=== PATIENT | male | born 1965 | race Caucasian/White ===

== ENCOUNTER 2021-03-16 10:18 | Observation (INO) ==
[2021-03-16 11:47] LABS: Basophils # (auto) 0.05 K/uL (0-0.2); Basophils % (auto) 0.3 %; Eosinophils # (auto) 0.07 K/uL (0-0.5); Eosinophils % (auto) 0.5 %; Hematocrit (blood only) 45.3 % (42-52); Hemoglobin 15.5 g/dL (14.0-18.0); Immature Granulocytes # (auto) 0.06 K/uL (0.00-0.02); Immature Granulocytes % (auto) 0.4 %; Lymphocytes # (auto) 1.66 K/uL (1.2-3.4); Lymphocytes % (auto) 10.8 %; Mean Corpuscular Hemoglobin 29.2 pg (25-34); Mean Corpuscular Hgb Conc 34.2 g/dL (32-36); Mean Corpuscular Volume 85.5 fL (80-100); Mean Platelet Volume 11.5 fL (7.4-10.4); Monocytes # (auto) 0.77 K/uL (0.11-0.59); Neutrophils # (auto) 12.73 K/uL (1.4-6.5); Platelet Count 176 K/uL (130-400); RDW Coefficient of Variation 13.5 % (11.5-14.5); RDW Standard Deviation 42.8 fL (36.4-46.3); White Blood Count 15.34 K/uL (4.8-10.8)
[2021-03-16 12:06] LABS: Albumin Level 3.6 gm/dl (3.4-5.0); BUN Creatinine Ratio 10.9 (10-20); Calcium 9.2 mg/dl (8.5-10.1); Creatinine Clr Calc Pharmacy 83.4 ml/min; Est GFR (African American) 91.9 ml/min; Est GFR (Non-African American) 79.3 ml/min
[2021-03-16 12:09] LABS: Albumin Globulin Ratio 0.9 (0.9-2); Bilirubin,Total 0.7 mg/dl (0.2-1); Globulin 3.9 gm/dl (2.5-4.0); Total Protein 7.5 gm/dl (6.4-8.2)
[2021-03-16] MEDS ORDERED: SODIUM CHLORIDE 0.9% 1000ML 1,000 ML IV ONE (12:48)
[2021-03-16] MEDS ORDERED: MoRPHine SULFATE 10 MG/ML CARP/VIAL IV STA (12:48)
[2021-03-16] MEDS ORDERED: ONDANSETRON INJ 2 MG/ML 2 ML VIAL IV STA (12:48)
--- NOTE | 2021-03-16 13:04 | Emergency Department Note ---
Impression & Plan Acute appendicitis ED Provider Note Name: MONICA CENTENO Age: 55 Sex: M Arrives Via: Walk-In Informant: Patient ED Provider: Gerald Hi MD Chief Complaint: Abdominal pain Impression: As Per Impressions Above Medical Decision Making: Pleasant 55 yr old male with history anxiety/depression, hyperlipidemia, arrives for evaluation abdominal pain, initially diffuse now in RLQ. Labs with elevated WBC, no fevers, and patient quite uncomfortable on exam. Given IV opioid for pain control and CT obtained. CT reveals acute appendicitis without perforation. Mefoxin started and gen surg consulted for further management. Pre-op EKG and CXR ordered along with covid testing. Patient given IV fluids and kept NPO. Prior Medical Record and Triage/Nursing Notes reviewed by Me Additional history obtained from chart Differentials:Appendicitis, infections, diverticulitis, UTI, obstruction, mesenteric ischemia, aortic pathology, inflammatory bowel disease, renal colic, PUD, pancreatitis, biliary pathology, hernia, volvulus, constipation, as well as other pathologies. Vital Signs: reviewed and remarkable for no significant abnormalities Interventions: saline lock, morphine iv, zofran iv, nss bolus, mefoxitin 2gm iv Labs:Reviewed and remarkable for elevated wbc Imaging:See Below EKG:Per My Interpretation: Indication Pre Op: NSR 60 bpm, qtc 430. No Ectopy. No Ischemia. Compared to EKG 01/31/14, no significant changes. Consults:Dr Sukh Gary Gen Surg consulted and patient taken to or Plan: Disposition: Taken to OR Condition: Good History of Present Illness:55 yr old male arrives for evaluation of abdominal pain. Patient with 24 hours abdominal pain. Initially diffuse and upper abdomen, however overnight pain is now in RLQ. Associated nausea. No fevers, chills, chest pain, syncope, back pain, sob, urinary/bowel symptoms, leg swelling, rashes nor other symptoms. No recent trauma, injuries, bleeding nor bruising. No history abdominal issues and no previous surgeries. No medications taken for this. Movement makes worse, rest makes better. ROS: See above HPI for pertinent positives & negatives. A total of 10 systems reviewed and were otherwise negative. Past Medical History:See Below Past Surgical History:See Below Family History:See Below Social History:See Below Home Medications:See Below Allergies:nkda Vitals:Blood Pressure: 173/8, Pulse 60, RR 16, T 3.4C, O2 100% on RA Physical Exam: GENERAL: Patient is uncomfortable appearing and in moderate distress. EYES: No scleral icterus, unremarkable pupils. ENT: Mucous membranes moist, no nasal congestion. NECK: No masses appreciated, nomeningismus, trachea is midline. RESPIRATORY: No dyspnea. Clear to auscultation and equal bilaterally. No wheeze, no rhonchi. CARDIOVASCULAR: Regular rate and rhythm.No murmurs, rubs, gallops appreciated. GASTROINTESTINAL: Abdomen soft, TTP over RLQ.Bowel sounds positive.No masses appreciated. BACK: No midline tenderness, no CVA tenderness EXTREMITIES: Normal motion all extremities, no cyanosis, no edema. NEUROLOGIC: Alert and oriented, no acute motor or sensory deficits, no focal weakness, cranial nerves grossly intact. SKIN: No rash, no jaundice, no diaphoresis. PSYCH: Appropriate GCS: 15 ED Course: Times/Reassessments: stable, feeling much better with morphine. Understands CT findings and need for gen surg evaluation. Gerald Hi MD Past Med/Surg History Social History Smoking Status: Never smoker Second Hand Exposure: No; Do You Dip or Chew Tobacco: No; Tobacco Cessation Education Requested by Patient: No Hx Alcohol Use: No Hx Substance Use: No Preferred Language: Kitt[place] Metal Stamping Machine Operator Required: Yes Beliefs That Will Affect Care: None Current Living Situation: Spouse Other Information That Helps Us Care for You: No Feels Safe at Home: Yes Safety Concerns: Feels Safe At This Time Assistive Devices: Glasses Allergies Allergies Allergy/AdvReac Type Severity Reaction Status Date / Time No Known Allergies Allergy Unverified 03/16/21 14:03 Home Meds Home Medications Medication Instructions Recorded Confirmed bupropion HCl 300 mg 24 hr tablet, 300 mg PO DAILY 03/16/21 03/16/21 extended release buspirone 15 mg tablet 15 mg PO TID 03/16/21 03/16/21 clonazepam 0.5 mg tablet 0.5 mg PO UD PRN 03/16/21 03/16/21 sertraline 100 mg tablet 200 mg PO DAILY 03/16/21 03/16/21 Previous Rx's Medication Instructions Recorded oxycodone-acetaminophen 5 mg-325 1 tab PO Q6H PRN #5 tab 03/17/21 mg tablet Results & Data (ED) Vital Signs Vital Signs - 24 hr 03/16/21 11:09 03/16/21 12:39 03/16/21 14:28 Temperature 36.4 C L Temperature Source Temporal Artery Scan Pulse Rate 63 Pulse Rate [Apical] Pulse Rate [Finger] 60 64 Pulse Rhythm [Apical] Pulse Rhythm [Finger] Pulse Strength [Finger] Respiratory Rate 20 16 16 Respiratory Effort / Characteristics Non-Labored Spontaneous Non-Labored Spontaneous Non-Labored Respiratory Depth Normal Normal Normal Respiratory Pattern Regular Regular Blood Pressure 170/93 H Blood Pressure [Right Arm] 173/89 H 163/99 H Blood Pressure Mean 118 Blood Pressure Mean [Right Arm] 117 120 Blood Pressure Position Sitting Blood Pressure Position [Right Arm] Lying Pulse Oximetry 98 100 91 Oxygen Delivery Method Room Air Room Air Room Air Oxygen Flow Rate Sepsis Recent Fever Within 48 Hours No Sepsis New/Unexplained Change in Mental Status No Sepsis Action Taken by Nursing No Action Required 03/16/21 16:00 03/16/21 16:22 03/16/21 17:54 Temperature 36.8 C 36.8 C Temperature Source Oral Temporal Artery Scan Pulse Rate Pulse Rate [Apical] 70 Pulse Rate [Finger] 85 72 Pulse Rhythm [Apical] Regular Pulse Rhythm [Finger] Regular Pulse Strength [Finger] Normal Respiratory Rate 18 18 16 Respiratory Effort / Characteristics Non-Labored Spontaneous Non-Labored Spontaneous Non-Labored Spontaneous Respiratory Depth Normal Normal Normal Respiratory Pattern Regular Regular Regular Blood Pressure Blood Pressure [Right Arm] 143/87 H 137/77 145/85 H Blood Pressure Mean Blood Pressure Mean [Right Arm] 105 97 105 Blood Pressure Position Blood Pressure Position [Right Arm] Lying Semi-fowlers Pulse Oximetry 97 93 100 Oxygen Delivery Method Room Air Room Air Oxymask Oxygen Flow Rate 6 Sepsis Recent Fever Within 48 Hours Sepsis New/Unexplained Change in Mental Status Sepsis Action Taken by Nursing Laboratory Data Result diagrams: 03/16/21 11:30 03/16/21 11:30 Lab Results 03/16/21 03/16/21 03/16/21 Range/Units 11:30 11:30 13:50 WBC 15.34 H (4.8-10.8) K/uL RBC 5.30 (4.7-6.1) M/uL Hgb 15.5 (14.0-18.0) g/dL Hct 45.3 (42-52) % MCV 85.5 (80-100) fL MCH 29.2 (25-34) pg MCHC 34.2 (32-36) g/dL RDW Std Deviation 42.8 (36.4-46.3) fL RDW Coeff of Rosangela 13.5 (11.5-14.5) % Plt Count 176 (130-400) K/uL MPV 11.5 H (7.4-10.4) fL Immature Gran % (Auto) 0.4 % Neut % (Auto) 83.0 % Lymph % (Auto) 10.8 % Benton % (Auto) 5.0 % Eos % (Auto) 0.5 % Baso % (Auto) 0.3 % Neut # (Auto) 12.73 H (1.4-6.5) K/uL Lymph # (Auto) 1.66 (1.2-3.4) K/uL Benton # (Auto) 0.77 H (0.11-0.59) K/uL Eos # (Auto) 0.07 (0-0.5) K/uL Baso # (Auto) 0.05 (0-0.2) K/uL Immature Gran # (Auto) 0.06 H (0.00-0.02) K/uL Sodium 135 L (136-145) mmol/L Potassium 4.0 (3.5-5.1) mmol/L Chloride 102 (98-107) mmol/L Carbon Dioxide 27 (21-32) mmol/L Anion Gap 6.0 (3-11) BUN 11 (7-18) mg/dl Creatinine 1.04 (0.6-1.4) mg/dl Est Cr Clr Drug Dosing 83.4 ml/min Est GFR ( Amer) 91.9 ml/min Est GFR (Non-Af Amer) 79.3 ml/min BUN/Creatinine Ratio 10.9 (10-20) Glucose 110 H (70-99) mg/dl Calcium 9.2 (8.5-10.1) mg/dl Total Bilirubin 0.7 (0.2-1) mg/dl AST 20 (15-37) U/L ALT 31 (12-78) U/L Alkaline Phosphatase 90 (45-117) U/L Total Protein 7.5 (6.4-8.2) gm/dl Albumin 3.6 (3.4-5.0) gm/dl Globulin 3.9 (2.5-4.0) gm/dl Albumin/Globulin Ratio 0.9 (0.9-2) Lipase 104 (73-393) U/L COVID-19 Eval Order Covid19 at [facility] SARS-CoV-2 (PCR) (Negative) 03/16/21 Range/Units 13:50 WBC (4.8-10.8) K/uL RBC (4.7-6.1) M/uL Hgb (14.0-18.0) g/dL Hct (42-52) % MCV (80-100) fL MCH (25-34) pg MCHC (32-36) g/dL RDW Std Deviation (36.4-46.3) fL RDW Coeff of Rosangela (11.5-14.5) % Plt Count (130-400) K/uL MPV (7.4-10.4) fL Immature Gran % (Auto) % Neut % (Auto) % Lymph % (Auto) % Benton % (Auto) % Eos % (Auto) % Baso % (Auto) % Neut # (Auto) (1.4-6.5) K/uL Lymph # (Auto) (1.2-3.4) K/uL Benton # (Auto) (0.11-0.59) K/uL Eos # (Auto) (0-0.5) K/uL Baso # (Auto) (0-0.2) K/uL Immature Gran # (Auto) (0.00-0.02) K/uL Sodium (136-145) mmol/L Potassium (3.5-5.1) mmol/L Chloride (98-107) mmol/L Carbon Dioxide (21-32) mmol/L Anion Gap (3-11) BUN (7-18) mg/dl Creatinine (0.6-1.4) mg/dl Est Cr Clr Drug Dosing ml/min Est GFR ( Amer) ml/min Est GFR (Non-Af Amer) ml/min BUN/Creatinine Ratio (10-20) Glucose (70-99) mg/dl Calcium (8.5-10.1) mg/dl Total Bilirubin (0.2-1) mg/dl AST (15-37) U/L ALT (12-78) U/L Alkaline Phosphatase (45-117) U/L Total Protein (6.4-8.2) gm/dl Albumin (3.4-5.0) gm/dl Globulin (2.5-4.0) gm/dl Albumin/Globulin Ratio (0.9-2) Lipase (73-393) U/L COVID-19 Eval Order SARS-CoV-2 (PCR) NEGATIVE (Negative) Administered Medications Bupropion HCl (Bupropion Xl 300 Mg Tabcr) 300 mg PO DAILY LESLYE Stop: 04/16/21 08:59 Last Admin: 03/17/21 07:47 Dose: 300 mg Documented by: [id number] Buspirone HCl (Buspirone 15 Mg Tab) 15 mg PO TID LESLYE Stop: 04/15/21 20:59 Last Admin: 03/17/21 07:47 Dose: 15 mg Documented by: [id number] Admin: 03/16/21 21:46 Dose: 15 mg Documented by: [id number] Enoxaparin Sodium (Enoxaparin Inj 40 Mg/0.4 Ml Syr) 40 mg SQ Q24H LESLYE Stop: 04/16/21 07:59 Last Admin: 03/17/21 07:46 Dose: 40 mg Documented by: [id number] Sertraline HCl (Sertraline Hcl 100 Mg Tablet) 200 mg PO DAILY LESLYE Stop: 04/16/21 08:59 Last Admin: 03/17/21 07:47 Dose: 200 mg Documented by: [id number] Discontinued Medications Bupivacaine HCl (Bupivacaine 0.5 % 5 Mg/1 Ml Mpf 30ml Vial) Confirm Administered Dose 30 ml .ROUTE .STK-MED ONE Stop: 03/16/21 16:20 Last Admin: 03/16/21 17:43 Dose: 25 ml Documented by: [id number] Epinephrine HCl (Epinephrine Inj 1 Mg/Ml Amp) Confirm Administered Dose 1 mg .ROUTE .STK-MED ONE Stop: 03/16/21 16:51 Last Admin: 03/16/21 17:45 Dose: 0.15 mg Documented by: [id number] Sodium Chloride (Nss 1000ml) 1,000 mls @ 999 mls/hr IV .Q1H1M ONE Stop: 03/16/21 13:48 Last Infusion: 03/16/21 14:15 Dose: 0 mls/hr Documented by: [id number] Admin: 03/16/21 13:19 Dose: 999 mls/hr Documented by: [id number] Cefoxitin Sodium (Mefoxin) 2,000 mg in 60 mls @ 100 mls/hr IV NOW STA Stop: 03/16/21 13:57 Last Infusion: 03/16/21 15:29 Dose: 0 mls/hr Documented by: [id number] Infusion: 03/16/21 14:08 Dose: 0 mls/hr Documented by: [id number] Admin: 03/16/21 13:50 Dose: 100 mls/hr Documented by: [id number] Sodium Chloride (Nss 1000ml) 1,000 mls @ 125 mls/hr IV .Q8H LESLYE Stop: 04/15/21 14:59 Last Infusion: 03/16/21 19:39 Dose: 0 mls/hr Documented by: [id number] Admin: 03/16/21 15:30 Dose: 125 mls/hr Documented by: [id number] Ioversol (Optiray 320 100ml) 96 ml IV ONCE ONE Stop: 03/16/21 13:09 Last Admin: 03/16/21 13:09 Dose: 96 ml Documented by: [id number] Morphine Sulfate (Morphine Sulfate 10 Mg/Ml Carp/Vial) 8 mg IV NOW STA Stop: 03/16/21 12:49 Last Admin: 03/16/21 13:20 Dose: 8 mg Documented by: [id number] Morphine Sulfate (Morphine Sulfate 4 Mg/Ml 1 Ml Carp\Vial) 4 mg IV NOW STA Stop: 03/16/21 15:37 Last Admin: 03/16/21 15:42 Dose: 4 mg Documented by: [id number] Ondansetron HCl (Ondansetron Inj 2 Mg/Ml 2 Ml Vial) 4 mg IV NOW STA Stop: 03/16/21 12:49 Last Admin: 03/16/21 13:20 Dose: 4 mg Documented by: [id number] Imaging Data Radiologist's Impression: Abdomen/Pelvis CT 03/16/21 12:[address] WITH IV CONTRAST CT DOSE: 621.85 mGy.cm HISTORY: Right lower quadrant pain. Elevated white blood cell count. TECHNIQUE: Multiaxial CT images of the abdomen and pelvis were performed following the use of intravenous contrast. A dose lowering technique was utilized adhering to the principles of ALARA. COMPARISON STUDY: Abdomen and pelvis CT 01/31/2014. FINDINGS: Mild dependent changes seen within the lower lobes. Stable benign 6 mm subpleural nodule along the right minor fissure. No pneumoperitoneum. No pneumatosis. 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 No acute fractures within the visualized osseous structures. Stable hypodense lesions within the liver. Dominant lesion within the caudate lobe measures 3.1 cm. This demonstrates discontinuous peripheral nodular enhancement and therefore favors a hemangioma. The spleen, adrenal glands, pancreas, gallbladder, and right kidney are unremarkable. Increase in size in the 2.4 cm hypodense lesion within the left kidney. This likely represents a cyst. No hydronephrosis. No retroperitoneal lymphadenopathy. Normal caliber abdominal aorta. The bladder is unremarkable. No pelvic free fluid. A few colonic diverticula. No evidence for acute diverticulitis. No evidence for small bowel obstruction. Thick-walled and distended appendix with periappendiceal fat stranding and a few appendicoliths measuring up to 6 mm. This is consistent with an acute appendicitis. The appendix measures up to 1 cm in diameter. No perforation or abscess identified at this time. IMPRESSION: 1. Acute appendicitis. No perforation or abscess at this time. 2. Additional stable findings as described above. ACT 112: Negative or not required by law. Electronically signed by: Michel Daley M.D. 03/16/2021 1:18 PM Discharge Plan Visit Data Chief Complaint: Abdominal Pain Stated Complaint: ABDOMINAL PAIN ED Provider: Gerald Hi Discharge Problem: Acute appendicitis Patient Disposition: Admitted As Inpatient Discharge Instructions Interventions: ED Discharge Assessment Last Done: 03/16/21 16:19 Discharge Problem: Acute appendicitis Qualifiers: Acute appendicitis type: with localized peritonitis Appendicitis gangrene presence: without gangrene Appendicitis perforation presence: without perforation Appendicitis abscess presence: without abscess Qualified Code(s): K35.30 - Acute appendicitis with localized peritonitis, without perforation or gangrene
[2021-03-16] MEDS ORDERED: OPTIRAY 320 100ml IV ONE (13:08)
--- NOTE | 2021-03-16 13:19 | CT Scan Report ---
ABDOMEN AND PELVIS CT WITH IV CONTRAST CT DOSE: 621.85 mGy.cm HISTORY: Right lower quadrant pain. Elevated white blood cell count. TECHNIQUE: Multiaxial CT images of the abdomen and pelvis were performed following the use of intrave nous contrast. A dose lowering technique was utilized adhering to the principles of ALARA. COMPARISON STUDY: Abdomen and pelvis CT 01/31/2014. FINDINGS: Mild dependent changes seen within the lower lobes. Stable benign 6 mm subpleural nodule al sushila the right minor fissure. No pneumoperitoneum. No pneumatosis. 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 No acute fractures within the visualized osseous structures. Stable hypodense lesions within the liver. Dominant lesion within the caudate lobe measures 3.1 cm. This demonstrates discontinuous p eripheral nodular enhancement and therefore favors a hemangioma. The spleen, adrenal glands, pancreas , gallbladder, and right kidney are unremarkable. Increase in size in the 2.4 cm hypodense lesion wit hin the left kidney. This likely represents a cyst. No hydronephrosis. No retroperitoneal lymphadenop athy. Normal caliber abdominal aorta. The bladder is unremarkable. No pelvic free fluid. A few coloni c diverticula. No evidence for acute diverticulitis. No evidence for small bowel obstruction. Thick-w alled and distended appendix with periappendiceal fat stranding and a few appendicoliths measuring up to 6 mm. This is consistent with an acute appendicitis. The appendix measures up to 1 cm in diameter . No perforation or abscess identified at this time. IMPRESSION: 1. Acute appendicitis. No perforation or abscess at this time. 2. Additional stable findings as described above. ACT 112: Negative or not required by law. Electronically signed by: Michel Daley M.D. 03/16/2021 1:18 PM
[2021-03-16] MEDS ORDERED: cefOXitin 2,000 MG/60 ML BAG IV STA (13:22)
[2021-03-16] MEDS ORDERED: SODIUM CHLORIDE 0.9% 1000ML 1,000 ML IV SCH (15:00)
[2021-03-16] MEDS ORDERED: MoRPHine SULFATE 4 MG/ML 1 ML CARP\\VIAL IV STA (15:36)
--- NOTE | 2021-03-16 15:53 | XRay Report ---
XR chest 1V portable HISTORY: 55 years-old Male preop preoperative exam. No acute chest complaints reported COMPARISON: CT abdomen and pelvis of same day, chest radiograph 01/31/2014, chest CT 08/19/2014 TECHNIQUE: Portable AP view of the chest FINDINGS: The cardiac silhouette is upper limits of normal in size. No pneumothorax, pleural effusion, airspace consolidation or overt pulmonary edema. No acute fracture. IMPRESSION: No acute process. ACT 112: Negative or not required by law. The above report was generated using voice recognition software. It may contain grammatical, syntax o r spelling errors. Electronically signed by: Chuck Mcghee M.D. 03/16/2021 3:51 PM
[2021-03-16] MEDS ORDERED: GLYCOPYRROLATE 0.2 MG/ML VIAL ONE ×2 (15:56→17:14)
[2021-03-16] MEDS ORDERED: fentaNYL citrate 100 MCG/2 ML VIAL ONE ×2 (15:56→15:57)
[2021-03-16] MEDS ORDERED: ONDANSETRON INJ 2 MG/ML 2 ML VIAL ONE ×2 (15:56→17:14)
[2021-03-16] MEDS ORDERED: NEOSTIGMINE METHYLSULFATE 1 MG/ML 10ML VIAL ONE (15:56)
[2021-03-16] MEDS ORDERED: DEXAMETHASONE SOD INJ 4 MG/ML VIAL ONE (15:56)
[2021-03-16] MEDS ORDERED: MIDAZOLAM HCL 1 MG/ML 2ML VIAL ONE (15:56)
[2021-03-16] MEDS ORDERED: PROPOFOL IV EMULSION 10 MG/ML 20 ML VIAL IV ONE (15:56)
[2021-03-16] MEDS ORDERED: LIDOCAINE 2% 2 ML VIAL/AMP(20MG/ML) INFIL ONE (15:56)
--- NOTE | 2021-03-16 15:57 | History & Physical Report ---
Date of Service March 16, 2021 Assessment & Plan (1) Acute appendicitis: Plan: 55-year-old gentleman with acute appendicitis. I discussed the risks and benefits of a laparoscopic appendectomy, possible open with him. We discussed the surgery as well as the recovery period and restrictions following surgery. All his questions were answered, and he is agreeable to proceed. We will taken to the operating room at the earliest convenience. History of Present Illness Primary Care Provider: Augusto Gunderson MD 55-year-old gentleman presents with 1 day history of epigastric pain radiating down to the right lower quadrant. It worsened all day yesterday into today. He denies nausea or vomiting. He has no appetite. His last food was a piece of toast this morning. He denies changes in bowel habits. He did have fevers and chills. CT scan demonstrates acute appendicitis without evidence of perforation. He denies chest pain or shortness of breath. He has never had an abdominal operation before. Allergies Allergy/AdvReac Type Severity Reaction Status Date / Time No Known Allergies Allergy Unverified 03/16/21 14:03 Home Medications Medication Instructions Recorded Confirmed Type bupropion HCl 300 mg 24 hr tablet, 300 mg PO DAILY 03/16/21 03/16/21 History extended release buspirone 15 mg tablet 15 mg PO TID 03/16/21 03/16/21 History clonazepam 0.5 mg tablet 0.5 mg PO UD PRN 03/16/21 03/16/21 History sertraline 100 mg tablet 200 mg PO DAILY 03/16/21 03/16/21 History Past Med/Surg History Social History Smoking Status: Never smoker Feels Safe at Home: Yes Review of Systems Review of Systems: All systems reviewed & are unremarkable except as noted in HPI & below Physical Exam Constitutional: WD/WN, vitals as above Eyes: PERRL, conjunctivae normal, anicteric sclerae Neck: trachea midline, no thyromegaly Respiratory: normal respiratory effort; no respiratory distress and no labored breathing Cardiovascular: Rate/Rhythm: regular rate and regular rhythm Gastrointestinal (Abdomen): Inspection/Auscultation: abdomen normal to inspection; abdomen not distended and no abdominal surgical scar Percussion/Palpation: + abdomen tender (Right lower quadrant) and abdomen soft; no guarding and abdomen not rigid Musculoskeletal: Extremities: no cyanosis and no clubbing Skin: no rashes, warm and dry Psychiatric: A+Ox3, euthymic affect Results & Data Results & Data ([facility]) Vital Signs (Past 12 Hours) Vital Signs Temp Pulse Pulse Resp BP BP Pulse Ox 03/16/21 14:28 64 16 163/99 H 91 03/16/21 12:39 60 16 173/89 H 100 03/16/21 11:09 36.4 C L 63 20 170/93 H 98 Laboratory Results 03/16/21 03/16/21 03/16/21 Range/Units 13:50 13:50 11:30 WBC (4.8-10.8) K/uL RBC (4.7-6.1) M/uL Hgb (14.0-18.0) g/dL Hct (42-52) % MCV (80-100) fL MCH (25-34) pg MCHC (32-36) g/dL RDW Std Deviation (36.4-46.3) fL RDW Coeff of Rosangela (11.5-14.5) % Plt Count (130-400) K/uL MPV (7.4-10.4) fL Immature Gran % (Auto) % Neut % (Auto) % Lymph % (Auto) % Divide % (Auto) % Eos % (Auto) % Baso % (Auto) % Neut # (Auto) (1.4-6.5) K/uL Lymph # (Auto) (1.2-3.4) K/uL Divide # (Auto) (0.11-0.59) K/uL Eos # (Auto) (0-0.5) K/uL Baso # (Auto) (0-0.2) K/uL Immature Gran # (Auto) (0.00-0.02) K/uL Sodium 135 L (136-145) mmol/L Potassium 4.0 (3.5-5.1) mmol/L Chloride 102 (98-107) mmol/L Carbon Dioxide 27 (21-32) mmol/L Anion Gap 6.0 (3-11) BUN 11 (7-18) mg/dl Creatinine 1.04 (0.6-1.4) mg/dl Est Cr Clr Drug Dosing 83.4 ml/min Est GFR ( Amer) 91.9 ml/min Est GFR (Non-Af Amer) 79.3 ml/min BUN/Creatinine Ratio 10.9 (10-20) Glucose 110 H (70-99) mg/dl Calcium 9.2 (8.5-10.1) mg/dl Total Bilirubin 0.7 (0.2-1) mg/dl AST 20 (15-37) U/L ALT 31 (12-78) U/L Alkaline Phosphatase 90 (45-117) U/L Total Protein 7.5 (6.4-8.2) gm/dl Albumin 3.6 (3.4-5.0) gm/dl Globulin 3.9 (2.5-4.0) gm/dl Albumin/Globulin Ratio 0.9 (0.9-2) Lipase 104 (73-393) U/L COVID-19 Eval Order Covid19 at [facility] SARS-CoV-2 (PCR) NEGATIVE (Negative) 03/16/21 Range/Units 11:30 WBC 15.34 H (4.8-10.8) K/uL RBC 5.30 (4.7-6.1) M/uL Hgb 15.5 (14.0-18.0) g/dL Hct 45.3 (42-52) % MCV 85.5 (80-100) fL MCH 29.2 (25-34) pg MCHC 34.2 (32-36) g/dL RDW Std Deviation 42.8 (36.4-46.3) fL RDW Coeff of Rosangela 13.5 (11.5-14.5) % Plt Count 176 (130-400) K/uL MPV 11.5 H (7.4-10.4) fL Immature Gran % (Auto) 0.4 % Neut % (Auto) 83.0 % Lymph % (Auto) 10.8 % Divide % (Auto) 5.0 % Eos % (Auto) 0.5 % Baso % (Auto) 0.3 % Neut # (Auto) 12.73 H (1.4-6.5) K/uL Lymph # (Auto) 1.66 (1.2-3.4) K/uL Divide # (Auto) 0.77 H (0.11-0.59) K/uL Eos # (Auto) 0.07 (0-0.5) K/uL Baso # (Auto) 0.05 (0-0.2) K/uL Immature Gran # (Auto) 0.06 H (0.00-0.02) K/uL Sodium (136-145) mmol/L Potassium (3.5-5.1) mmol/L Chloride (98-107) mmol/L Carbon Dioxide (21-32) mmol/L Anion Gap (3-11) BUN (7-18) mg/dl Creatinine (0.6-1.4) mg/dl Est Cr Clr Drug Dosing ml/min Est GFR ( Amer) ml/min Est GFR (Non-Af Amer) ml/min BUN/Creatinine Ratio (10-20) Glucose (70-99) mg/dl Calcium (8.5-10.1) mg/dl Total Bilirubin (0.2-1) mg/dl AST (15-37) U/L ALT (12-78) U/L Alkaline Phosphatase (45-117) U/L Total Protein (6.4-8.2) gm/dl Albumin (3.4-5.0) gm/dl Globulin (2.5-4.0) gm/dl Albumin/Globulin Ratio (0.9-2) Lipase (73-393) U/L COVID-19 Eval Order SARS-CoV-2 (PCR) (Negative) Diagnostic Findings ABDOMEN AND PELVIS CT WITH IV CONTRAST CT DOSE: 621.85 mGy.cm HISTORY: Right lower quadrant pain. Elevated white blood cell count. TECHNIQUE: Multiaxial CT images of the abdomen and pelvis were performed following the use of intravenous contrast. A dose lowering technique was utilized adhering to the principles of ALARA. COMPARISON STUDY: Abdomen and pelvis CT 01/31/2014. FINDINGS: Mild dependent changes seen within the lower lobes. Stable benign 6 mm subpleural nodule along the right minor fissure. No pneumoperitoneum. No pneumatosis. 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 No acute fractures within the visualized osseous structures. Stable hypodense lesions within the liver. Dominant lesion within the caudate lobe measures 3.1 cm. This demonstrates discontinuous peripheral nodular enhancement and therefore favors a hemangioma. The spleen, adrenal glands, pancreas, gallbladder, and right kidney are unremarkable. Increase in size in the 2.4 cm hypodense lesion within the left kidney. This likely represents a cyst. No hydronephrosis. No retroperitoneal lymphadenopathy. Normal caliber abdominal aorta. The bladder is unremarkable. No pelvic free fluid. A few colonic diverticula. No evidence for acute diverticulitis. No evidence for small bowel obstruction. Thick-walled and distended appendix with periappendiceal fat stranding and a few appendicoliths measuring up to 6 mm. This is consistent with an acute appendicitis. The appendix measures up to 1 cm in diameter. No perforation or abscess identified at this time. IMPRESSION: 1. Acute appendicitis. No perforation or abscess at this time. 2. Additional stable findings as described above. (1) Acute appendicitis Acute appendicitis type: with localized peritonitis Appendicitis abscess presence: without abscess Appendicitis gangrene presence: without gangrene Appendicitis perforation presence: without perforation Qualified Code(s): K35.30 - Acute appendicitis with localized peritonitis, without perforation or gangrene
--- NOTE | 2021-03-16 16:09 | Anesthesiology Consultation ---
Date of Service March 16, 2021 Assessment & Plan (1) Encounter for pre-operative examination: Chart Review Chart Review: Acceptable Risk for Surgery and Patient NOT seen in Pre Admission Testing Consults Requested none History Surgery Operation Date: 03/16/21 17:40 Proposed Procedures p Laparoscopic Appendectomy - Crescencio Luz MD Height/Weight Height: 5 ft 6 in Weight: 92.3 kg Allergies Allergy/AdvReac Type Severity Reaction Status Date / Time No Known Allergies Allergy Unverified 03/16/21 14:03 Medications Home Medications Medication Instructions Recorded Confirmed Last Taken bupropion HCl 300 mg 24 hr tablet, 300 mg PO DAILY 03/16/21 03/16/21 Unknown extended release buspirone 15 mg tablet 15 mg PO TID 03/16/21 03/16/21 Unknown clonazepam 0.5 mg tablet 0.5 mg PO UD PRN 03/16/21 03/16/21 Unknown sertraline 100 mg tablet 200 mg PO DAILY 03/16/21 03/16/21 Unknown Active Medications Generic Name Dose Route Start Last Admin Trade Name Nicolásq PRN Reason Stop Dose Admin Sodium Chloride 1,000 mls @ 125 mls/hr 03/16/21 15:00 03/16/21 15:30 Nss 1000ml IV 04/15/21 14:59 125 mls/hr .Q8H LESLYE Administration Social History Smoking Status: Never smoker Physical Exam Vital Signs Last Vital Signs Temp 97.5 F L 03/16/21 11:09 Pulse 64 03/16/21 14:28 Resp 16 03/16/21 14:28 BP 163/99 H 03/16/21 14:28 Pulse Ox 91 03/16/21 14:28 Testing Laboratory Results 03/16/21 11:30 03/16/21 11:30 Electrocardiogram Date: 03/16/21 Findings: + NSR @
[2021-03-16] MEDS ORDERED: BUPIVACAINE 0.5 % 5 MG/1 ML MPF 30ML VIAL ONE (16:19)
--- NOTE | 2021-03-16 16:48 | Electrocardiogram Report ---
Test Reason : Blood Pressure : / mmHG Vent. Rate : 060 BPM Atrial Rate : 060 BPM P-R Int : 176 ms QRS Dur : 080 ms QT Int : 430 ms P-R-T Axes : 057 043 045 degrees QTc Int : 430 ms Normal sinus rhythm Normal ECG When compared with ECG of 31-JAN-2014 09:26, No significant change was found Confirmed by Reid Cook ([id number]) on 03/16/2021 4:48:02 PM Referred By: REFERRED SELF Confirmed By:Reid Cook
[2021-03-16] MEDS ORDERED: EPINEPHrine INJ 1 MG/ML AMP ONE (16:50)
[2021-03-16] MEDS ORDERED: LARYING-O-JET KIT (LTA) ONE (17:14)
[2021-03-16] MEDS ORDERED: SUCCINYLCHOLINE CHLORIDE 20 MG/ML 10 ML VIAL IV ONE (17:15)
[2021-03-16] MEDS ORDERED: ROCURONIUM BROMIDE 10 MG/ML 5 ML VIAL IV ONE (17:15)
[2021-03-16] MEDS ORDERED: ePHEDrine sulfate 50 MG/ML SYR ONE (17:19)
--- NOTE | 2021-03-16 17:51 | Post Operative Brief Note ---
Immediate Post Op Note v1 Date of Surgery March 16, 2021 Pre & Post Diagnosis Operation Date: 03/16/21 17:40 Pre-Op Diagnosis: Acute appendicitis Post-Op Diagnosis: Acute appendicitis I identified the patient and participated in the time-out.: Yes Procedure Operation Date: 03/16/21 17:40 Actual Procedures p Laparoscopic Appendectomy(Not Applicable) - Crescencio Luz MD Surgeon Crescencio Luz MD Syruper SAMUEL Deluca assisted with tissue retraction, camera op, closure Estimated Blood Loss 5 Findings Consistent with Post-Op Diagnosis
--- NOTE | 2021-03-16 17:53 | Operative Report ---
Post Operative Report Pre & Post Diagnosis Operation Date: 03/16/21 17:40 Pre-Op Diagnosis: Acute appendicitis Post-Op Diagnosis: Acute appendicitis I identified the patient and participated in the time-out.: Yes Procedure Operation Date: 03/16/21 17:40 Actual Procedures p Laparoscopic Appendectomy(Not Applicable) - Crescencio Luz MD Surgeon Crescencio Luz MD Drum Worker SAMUEL Deluca assisted with tissue retraction, camera op, closure Estimated Blood Loss 5 Findings Consistent with Post-Op Diagnosis Acute inflammation of the appendix, appendicitis, no perforation Specimens Appendix Anesthesia Type General Complications No immediate complications Indications Acute appendicitis Description of Procedure The patient was taken to the operating room, and placed supine on the operating table. A timeout was performed, perioperative antibiotics were administered, SCD boots were placed. After adequate anesthesia and analgesia was obtained, the abdomen was prepped and draped in the normal sterile fashion. A 1 cm incision was made in the supraumbilical region and carried down to the level of the fascia. A trach hook was used to grasp the fascia and elevated and a varies needle was used to enter the abdominal cavity. The abdomen was insufflated to a pressure of 15 mmHg, and a 5 mm trocar was placed in this location. A 5 mm 30 degree laparoscope was placed into the abdominal cavity, and the abdomen was surveyed. The patient was placed in Trendelenburg and slightly to the left. One 5 mm trocar was placed in the right upper quadrant, and one 12 mm trocar was placed in the left lower quadrant under direct visualization. The right colon was identified and traced down to the cecum. The appendix was retrocecal and had to be dissected free from the pelvic sidewall. The appendix was identified and elevated anteriorly and medially. A window was created at the base of the appendix with a [place] dissector. The Endo SCARLETT stapler was used to transect the appendix at its base through noninflamed tissue, and subsequently the mesoappendix. The appendix was placed in an Endo Catch bag, and removed via the left lower quadrant port site. Attention was turned to hemostasis, which was excellent. The abdomen was copiously irrigated and suctioned free, and again hemostasis was found to be excellent. All trochars removed under direct visualization. The abdomen was desufflated. The fascia in the 12 mm port site was closed with a 0 Vicryl suture. The skin was closed with a running 4-0 Monocryl subcuticular stitch. Dermabond was applied. The patient tolerated the procedure without complication, and was transferred in stable condition to the PACU. All instrument, needle, and sponge counts were correct at the end of the case. I attest to the content of the Intraoperative Record and any orders documented therein. Any exceptions are noted below.
--- NOTE | 2021-03-16 18:22 | Anesthesiology Progress Note ---
Date of Service March 16, 2021 Anesthesia Post Procedure Vital Signs Vital Signs: Temp Pulse Pulse Pulse Resp BP BP 03/16/21 18:20 97.7 F 72 15 142/86 H 03/16/21 18:10 72 15 141/83 H 03/16/21 18:00 69 17 153/86 H 03/16/21 17:54 98.2 F 70 16 145/85 H 03/16/21 16:22 98.2 F 72 18 137/77 03/16/21 16:00 85 18 143/87 H 03/16/21 14:28 64 16 163/99 H 03/16/21 12:39 60 16 173/89 H 03/16/21 11:09 97.5 F L 63 20 170/93 H Pulse Ox 03/16/21 18:20 94 03/16/21 18:10 100 03/16/21 18:00 100 03/16/21 17:54 100 03/16/21 16:22 93 03/16/21 16:00 97 03/16/21 14:28 91 03/16/21 12:39 100 03/16/21 11:09 98 Pain Intensity Abdomen: Pain Intensity: 3 Transfer of Care Handoff Completed per policy Notes Mental Status: alert / awake / arousable and participated in evaluation Patient Amnestic to Procedure: Yes Nausea / Vomiting: adequately controlled Pain: adequately controlled Airway Patency, RR, SpO2: stable & adequate BP & HR: stable & adequate Hydration State: stable & adequate Anesthetic Complications: no major complications apparent and Pt Satisfied with anesthetic care
[2021-03-16] MEDS ORDERED: KETOROLAC 30 MG/ML VIAL IV PRN (19:37)
[2021-03-16] MEDS ORDERED: MoRPHine SULFATE 2 MG/ML CARP IV PRN (19:37)
[2021-03-16] MEDS ORDERED: ONDANSETRON INJ 2 MG/ML 2 ML VIAL IV PRN (19:37)
[2021-03-16] MEDS ORDERED: oxyCODONE/ACETAMINOPHEN 5mg/325mg TAB PO PRN (19:37)
[2021-03-16] MEDS ORDERED: diphenhydrAMINE Capsule 25 MG CAP PO PRN (19:37)
[2021-03-16] MEDS ORDERED: PROMETHAZINE HCL 12.5 MG in SODIUM CHLORIDE 0.9% 50 ML IV PRN (19:37)
[2021-03-16] MEDS: busPIRone 15 MG TAB PO SCH (21:46)
[2021-03-17] MEDS: busPIRone 15 MG TAB PO SCH ×2 (07:47→14:13)
[2021-03-17] MEDS ORDERED: ENOXAPARIN INJ 40 MG/0.4 ML SYR SQ SCH (08:00)
[2021-03-17] MEDS ORDERED: SERTRALINE HCL 100 MG TABLET PO SCH (09:00)
[2021-03-17] MEDS ORDERED: buPROPion XL 300 MG TABCR PO SCH (09:00)
--- NOTE | 2021-03-17 09:49 | Discharge Summary ---
Date of Service March 17, 2021 Admission HPI Per Admitting Provider 55-year-old gentleman presents with 1 day history of epigastric pain radiating down to the right lower quadrant. It worsened all day yesterday into today. He denies nausea or vomiting. He has no appetite. His last food was a piece of toast this morning. He denies changes in bowel habits. He did have fevers and chills. CT scan demonstrates acute appendicitis without evidence of perforation. He denies chest pain or shortness of breath. He has never had an abdominal operation before. Principal Diagnosis Acute appendicitis Discharge Exam Constitutional WD/WN, vitals as above no acute distress and not ill appearing Respiratory normal respiratory effort; no respiratory distress, no labored breathing and no retractions Gastrointestinal (Abdomen) Inspection/Auscultation: + abdomen distended (mildly) and + abdominal surgical incision (ecchymosis at LLQ incision site) Percussion/Palpation: + abdomen tender (at incision sites and RLQ) and abdomen soft; no guarding and abdomen not rigid Skin no rashes, warm and dry Psychiatric A+Ox3, euthymic affect Discharge Data Allergies Allergy/AdvReac Type Severity Reaction Status Date / Time No Known Allergies Allergy Unverified 03/16/21 14:03 Consultations 03/16/21 13:24 ED Decision to Admit Stat Procedures Performed Operation Date: 03/16/21 17:40 Actual Procedures p Laparoscopic Appendectomy(Not Applicable) - Crescencio Luz MD Ordered Studies 03/16/21 12:48 CT abd pelvis IV con only Stat Hospital Course (1) Acute appendicitis: Patient was taken to operating room for laparoscopic appendectomy by Dr. Luz. Patient found to have acute appendicitis without perforation or abscess. Patient tolerated procedure well and was transferred to recovery then to medical/surgical floor for postoperative care. Diet advanced to regular diet, IV fluids, PO Percocet and Tylenol prn pain, Activity as tolerated. POD # 1, afebrile, vitals stable, mild postop pain not requiring any pain medications. He tolerated advancement of diet and ambulating hallway. Patient was discharged home on POD # 1 in stable condition. Total Time Total Time Spent Total Time Spent (In Minutes): 30 Total Time Includes: Examination of the Patient, Discharge Planning and Medication Reconciliation Discharge Plan Discharge Items Patient Disposition: Home - Self-Care Reason For Visit: ABDOMINAL PAIN Discharge Diagnosis: Acute appendicitis Activity: Per Instructions section Non-emergency contact: Surgeon Call non-emergency contact if: you have any medication questions, your pain is not controlled, your pain is worsening, your pain is concerning for you, you have a fever, your temperature is above 101, your wound has increased redness, your wound has increased drainage and your wound pain has increased Follow-up/Referrals: Crescencio Luz MD [Physician] - (follow-up in surgical office in 2 weeks) Augusto Gunderson MD [Primary Care Provider] - Diet: Regular Addtl Attending Provider Instructions: Post-Surgical ~Discharge Instructions Activity Recommendations: - lifting limitation: (15-20 pounds for 2-3 weeks), - exercise/sex/sports limit: (nonstrenuous for 2 weeks), - driving or machine use limit: (none for 3 days or until no longer taking narcotic pain medication and pain free), - Shower/bathe limit: (may shower tonight) Diet: - Resume previous diet SPECIAL CARE INSTRUCTIONS: - May shower tonight. Let water run over area and pat dry. - Surgical glue will fall off on its own, do not pick at it. - Call the surgeon's office with any questions or concerns - - (ex. temperature higher than 101 degrees F, excessive bleeding or pain). MEDICATIONS: - Resume previous medications unless instructed otherwise by your surgeon. - May alternate extra strength Tylenol and Ibuprofen as needed for mild to moderate pain -650 mg Tylenol every 6 hours as needed - Ibuprofen 600 mg every 6 hours as needed (take with food) - Percocet 1 every 4 hours, as needed for moderate to severe pain - Recommend daily stool softener (Colace) while taking narcotic pain medication to prevent constipation or straining. FOLLOW UP VISIT: - If not already scheduled, please call the office to schedule a two week follow-up appointment. Office number Pending Studies at Discharge: Yes (appendix pathology, will be reviewed at postop visit) Stand-Alone Forms: My [employer], Smoking Cessation Medications and DC Order Prescriptions: New oxycodone-acetaminophen 5-325 mg tablet 1 tab PO Q6H PRN (Reason: pain (scale score 7-10)) Qty: 5 RF: 0 Continued clonazepam 0.5 mg tablet 0.5 mg PO UD PRN (Reason: Anxiety) RF: 0 sertraline 100 mg tablet 200 mg PO DAILY RF: 0 buspirone 15 mg tablet 15 mg PO TID RF: 0 bupropion HCl 300 mg tablet extended release 24 hr 300 mg PO DAILY RF: 0 Discharge Orders: Discharge Order (Routine); Ordered 03/17/21 Ordered By: Abeba Deluca Admission Data Admit Date/Time: 03/16/21 17:56 Attending Provider: Crescencio Luz Admit Provider: Crescencio Luz Primary Care Provider: Augusto Gunderson Other Providers: Crescencio Luz Other Interventions: Discharge Summary Assessment (RN) Last Done: 03/17/21 11:32
== END 2021-03-17 14:37 | disposition home or self-care (01) ==
LOC: ED 10:18 → OR 16:03 → 3E 16:03